=== PATIENT | female | born 1970 | race Caucasian/White ===

== ENCOUNTER 2020-11-08 13:52 | Outpatient (CLI) | payer MEDICARE | END 2020-11-08 13:53 | disposition home or self-care (01) | LOC: SCSRAD 13:52 | PROVIDERS: ATTEND Nurse Practitioner Family | DX: M25.562 Pain in left knee (principal) ==

== ENCOUNTER 2021-03-14 13:09 | Outpatient (CLI) | payer MEDICARE, MEDICAID ==
[2021-03-14 14:41] LABS: Bilirubin Neg (Negative); Blood, Urine Negative (Negative); Clarity Clear (Clear); Glucose, Urine (Dipstick) Normal (Negative); Ketone, Urine Negative (Negative); Leukocyte Negative (Negative); Nitrite Negative (Negative); Protein, Urine (Dipstick) Negative (Neg-Trace); Urobilinogen Normal mg/dL (Less than 2)
[2021-03-14 14:43] LABS: Hemoglobin 15.2 g/dL (12.0-15.5); Mean Corpuscular HGB CONC 32.1 g/dL (32.0-36.0); Mean Corpuscular Hemoglobin 28.1 pg (27.0-33.0); Mean Corpuscular Volume 87.6 fl (81.6-98.3); Mean Platelet Volume 9.9 fl (7.4-10.4); Platelet Count 279 10x3/uL (150-450); RBC Distribution Width 14.5 % (11.5-14.5); Red Blood Cell (RBC) Count 5.41 10x6/uL (3.90-5.03); White Blood Cell (WBC) Count 7.6 10x3/uL (3.5-10.5)
[2021-03-14 14:48] LABS: Bacteria/HPF None Seen HPF (None Seen); RBC/HPF 0-3 HPF (0-3); WBC/HPF 0-3 HPF (0-3)
[2021-03-14 15:05] LABS: Anion Gap 12 mmol/L (10-20); BUN (Urea Nitrogen) 10 mg/dL (9.8-20.1); Calc. Creatinine Clearance 0 mL/min (70-130); Carbon Dioxide 28 mmol/L (22-29); Chloride 102 mmol/L (98-107); Glucose 127 mg/dL (70-105); Potassium 4.1 mmol/L (3.5-5.1); Sodium 138 mmol/L (136-145)
[2021-03-14 15:07] LABS: INR-International Normal Ratio 0.9; PTT 27.2 sec (22.0-33.0); Prothrombin Time 10.1 sec (9.5-12.1)
[2021-03-15 17:56] LABS: SARS-CoV-2 PCR by NAA Not Detected (NotDetected)
== END 2021-03-14 13:10 | disposition home or self-care (01) ==
LOC: LABBT 13:09
PROVIDERS: ATTEND Urology
DX: Z01.818 Encounter for other preprocedural examination (principal); N39.46 Mixed incontinence; E11.9 Type 2 diabetes mellitus without complications; L93.0 Discoid lupus erythematosus; G89.4 Chronic pain syndrome; N32.81 Overactive bladder; Z96.89 Presence of other specified functional implants; Z20.822 Contact with and (suspected) exposure to COVID-19
CPT/HCPCS: 71046; 80048; 81001; 85027; 85610; 85730; 87086; U0003; U0005

== ENCOUNTER 2021-03-17 07:09 | Day surgery (SDC) | payer MEDICARE, MEDICAID ==
[2021-03-08 12:17] VITALS: BMI 36.8
[2021-03-17] MEDS ORDERED: Midazolam HCl 2 mg/2 ml Vial ONE (09:11)
[2021-03-17] MEDS ORDERED: Fentanyl 100 MCG/2 ML VIAL ONE ×2 (09:35→10:26)
[2021-03-17] MEDS ORDERED: Bupivacaine 0.25% HCL 30 ML VIAL ONE (09:38)
[2021-03-17] MEDS ORDERED: Neomycin-Polymyxin 1 ML AMP ONE (09:38)
[2021-03-17] MEDS ORDERED: ceFAZolin 2 GM/Dextrose 50 ML IVPB ONE (09:42)
[2021-03-17] MEDS ORDERED: ePHEDrine 50 MG/ML VIAL ONE (09:55)
[2021-03-17] MEDS ORDERED: Dexamethasone 20 MG/5 ML VIAL ONE (09:55)
[2021-03-17] MEDS ORDERED: Glycopyrrolate 0.2 MG/ML 5 ML SYRINGE ONE (09:55)
[2021-03-17] MEDS ORDERED: Rocuronium Bromide 10 MG/ML (10ML VIAL) ONE (09:55)
[2021-03-17] MEDS ORDERED: Albuterol Sulfate HFA (OR ONLY) ONE ×2 (09:55→11:36)
[2021-03-17] MEDS ORDERED: PROPOFOL 200 MG/20 ML VIAL ONE (09:55)
[2021-03-17] MEDS ORDERED: Lidocaine 1% PF 5 ML VIAL ONE (09:55)
[2021-03-17] MEDS ORDERED: PHENYLEPHRINE-NS 100 MCG/ML 10 ML SYRINGE ONE (09:55)
[2021-03-17] MEDS ORDERED: Ondansetron PF 4 MG/2 ML Vial ONE (09:55)
[2021-03-17] MEDS ORDERED: Ketamine 50 MG/ML (10ML VIAL) ONE (10:27)
== END 2021-03-17 13:39 | disposition home or self-care (01) ==
LOC: SDC 07:09
PROVIDERS: ATTEND Urology
PROC: 0JPT0MZ Removal of Stimulator Generator from Trunk Subcutaneous Tissue and Fascia, Open Approach (ICD-10-PCS; principal; 2021-03-17)
PROC: 0JH70CZ Insertion of Single Array Rechargeable Stimulator Generator into Back Subcutaneous Tissue and Fascia, Open Approach (ICD-10-PCS; 2021-03-17)
PROC: 01PY0MZ Removal of Neurostimulator Lead from Peripheral Nerve, Open Approach (ICD-10-PCS; 2021-03-17)
PROC: 01HY0MZ Insertion of Neurostimulator Lead into Peripheral Nerve, Open Approach (ICD-10-PCS; 2021-03-17)
DX: N32.81 Overactive bladder (principal); G89.29 Other chronic pain; N39.46 Mixed incontinence; E11.9 Type 2 diabetes mellitus without complications; Z79.84 Long term (current) use of oral hypoglycemic drugs; Z79.899 Other long term (current) drug therapy; Z88.5 Allergy status to narcotic agent
CPT/HCPCS: 76000; 93005; 93010; C1713; J0690; J1100; J2250; J2405; J2704; J3010; J3490; J7620; S0020

== ENCOUNTER 2022-01-18 12:04 | Outpatient (CLI) | payer OTHER | END 2022-01-18 12:05 | disposition home or self-care (01) | LOC: SCSRAD 12:04 | PROVIDERS: ATTEND Family Medicine | DX: M79.671 Pain in right foot (principal); S99.921A Unspecified injury of right foot, initial encounter ==

== ENCOUNTER 2024-01-28 13:56 | Outpatient (CLI) | payer OTHER, MEDICAID ==
[2024-01-28 15:26] LABS: Hematocrit 46.5 % (36.0-47.0); Hemoglobin 15.3 g/dL (12.0-16.0); Mean Corpuscular HGB CONC 32.9 g/dL (32.0-36.0); Mean Corpuscular Hemoglobin 29.1 pg (27.0-31.0); Mean Corpuscular Volume 88.6 fL (78.0-98.0); Mean Platelet Volume 9.9 fL (7.4-10.4); Platelet Count 219 10x3/uL (130-400); RBC Distribution Width 13.2 % (11.5-14.5); Red Blood Cell (RBC) Count 5.25 mill/uL (4.20-5.40)
[2024-01-28 15:40] LABS: Prothrombin Time 12.9 sec (12.0-14.7)
[2024-01-28 15:43] LABS: Anion Gap 14 mmol/L (10-20); BUN (Urea Nitrogen) 14 mg/dL (9.8-20.1); Calc. Creatinine Clearance 0 mL/min (70-130); Calcium 9.4 mg/dL (7.8-10.44); Carbon Dioxide 29 mmol/L (22-29); Chloride 103 mmol/L (98-107); Estimated GFR 90; Glucose 116 mg/dL (70-105); Potassium 3.4 mmol/L (3.5-5.1); Sodium 143 mmol/L (136-145)
[2024-01-28 15:51] LABS: Bilirubin Negative (Negative); Blood, Urine Negative (Negative); Clarity Turbid (Clear); Glucose, Urine (Dipstick) Normal (Negative); Ketone, Urine Negative (Negative); Leukocyte 25 Leu/uL (Negative); Nitrite Negative (Negative); Protein, Urine (Dipstick) 20 mg/dL (Neg-Trace); RBC/HPF None Seen HPF (0-3); Specific Gravity, Urine 1.022 (1.002-1.036); Urobilinogen 6 mg/dL (Less than 2)
[2024-01-28 15:52] LABS: Bacteria/HPF 1+ HPF (None Seen)
== END 2024-01-28 13:57 | disposition home or self-care (01) ==
LOC: LABBT 13:56
PROVIDERS: ATTEND Urology
DX: Z01.818 Encounter for other preprocedural examination (principal); N39.46 Mixed incontinence
CPT/HCPCS: 71046; 80048; 81001; 85027; 85610; 85730; 87077; 87086; 87186; 93005; 93010

== ENCOUNTER 2024-02-07 08:02 | Day surgery (SDC) | payer OTHER, MEDICAID ==
[2024-01-28 14:22] VITALS: BMI 35.5
[2024-02-07] MEDS ORDERED: PROPOFOL 20 ML ONE (10:44)
[2024-02-07] MEDS ORDERED: CEFAZOLIN 2 GM VIAL ONE (11:05)
[2024-02-07] MEDS ORDERED: Bupivacaine 0.25% HCL 30 ML VIAL ONE (11:15)
[2024-02-07] MEDS ORDERED: Gentamicin 80 MG/2 ML VIAL ONE (11:15)
[2024-02-07] MEDS ORDERED: Meropenem 1 GM in Sodium Chloride 0.9% 100 ML IVPB SCH (11:30)
[2024-02-07] MEDS ORDERED: fentaNYL PF 100 MCG/2 ML SYRINGE ONE (11:44)
[2024-02-07] MEDS ORDERED: Midazolam HCl 2 mg/2 ml Vial ONE (11:44)
[2024-02-07] MEDS ORDERED: Albuterol HFA (OR) 200 PUFF INH ONE (12:05)
[2024-02-07] MEDS ORDERED: Ondansetron PF 4 MG/2 ML Vial ONE (12:05)
[2024-02-07] MEDS ORDERED: Dexamethasone 20 MG/5 ML VIAL ONE (12:05)
[2024-02-07] MEDS ORDERED: Dexmedetomidine 200 MCG/2 ML VIAL ONE (12:18)
[2024-02-07] MEDS ORDERED: fentaNYL 50 mcg/mL 1 mL Vial ONE ×2 (12:21→13:40)
[2024-02-07] MEDS ORDERED: SUCCINYLCHOLINE/SOD CL,ISO/PF 200 MG/10 ML SYRINGE FS ONE (12:49)
[2024-02-07] MEDS ORDERED: Lidocaine 2% PF 5 ML VIAL ONE (12:50)
== END 2024-02-07 15:00 | disposition home or self-care (01) ==
LOC: SDC 08:02
PROVIDERS: ATTEND Urology
PROC: 0JPT3MZ Removal of Stimulator Generator from Trunk Subcutaneous Tissue and Fascia, Percutaneous Approach (ICD-10-PCS; principal; 2024-02-07)
PROC: 0JH Subcutaneous Tissue and Fascia, Insertion (ICD-10-PCS; 2024-02-07)
DX: N39.46 Mixed incontinence (principal); E11.9 Type 2 diabetes mellitus without complications; G43.909 Migraine, unspecified, not intractable, without status migrainosus; J45.909 Unspecified asthma, uncomplicated; E78.5 Hyperlipidemia, unspecified; L93.0 Discoid lupus erythematosus; N32.81 Overactive bladder; Z98.890 Other specified postprocedural states; Z90.710 Acquired absence of both cervix and uterus; F17.210 Nicotine dependence, cigarettes, uncomplicated; Z88.5 Allergy status to narcotic agent
CPT/HCPCS: 64561; 64590; 72170; C1713; C1767; C1787; C1897; J0665; J1100; J1580; J2185; J2250; J2405; J2704; J3010